=== PATIENT | male | born 1975 | race Caucasian/White ===

== ENCOUNTER 2021-03-02 13:30 | Emergency (ER) | payer OTHER ==
[2021-03-02 14:59] LABS: ALBUMIN 4.4 g/dL (3.4-5.0); BILIRUBIN - TOTAL 0.9 mg/dL (0.2-1.0); BUN/CREAT RATIO (CALC) 19.4 RATIO; CREATININE 0.98 mg/dL (0.67-1.17); GLOBULIN (CALCULATION) 2.7 g/dL; POTASSIUM 3.8 mmol/L (3.5-5.1); TOTAL PROTEIN 7.1 g/dL (6.4-8.2)
[2021-03-02 15:06] LABS: BASOPHIL 0.5 % (0-2); EOSINOPHIL 0.5 % (0-5); HCT 41.7 % (42.0-52.0); HGB 14.8 g/dl (13.2-18.0); LYMPHOCYTE 20.8 % (15-48); MCH 33.7 pg (25.0-31.0); MCHC 35.5 g/dL (32.0-36.0); MPV 8.9 fL (6.0-9.5); NEUTROPHIL 68.9 % (41-80); NRBC 0; PLT 257 K/uL (150-400); RBC 4.39 M/uL (4.70-6.00); RDW 12.3 % (11.5-14.0); WBC 6.6 K/uL (4.0-10.5)
[2021-03-02 15:10] LABS: INR 3.45 (0.9-1.2); PROTHROMBIN TIME 33.7 SECONDS (11.8-13.4)
== END 2021-03-02 21:33 | disposition home or self-care (01) ==
LOC: FER 13:30
PROVIDERS: Physician Assistant
DX: F41.9 Anxiety disorder, unspecified (principal); R07.89 Other chest pain; I11.0 Hypertensive heart disease with heart failure; I50.9 Heart failure, unspecified; Z79.899 Other long term (current) drug therapy; Z79.01 Long term (current) use of anticoagulants
CPT/HCPCS: 36415; 71045; 71275; 80053; 83880; 84484; 85025; 85610; 93005; Q9967